=== PATIENT | female | born 1960 | race Caucasian/White ===

== ENCOUNTER → 2017-01-07 | Outpatient (CLI) | payer OTHER ==
--- NOTE | 2017-01-07 11:10 | DIAGNOSTIC IMAGING REPORT ---
ULTRASOUND OF THE CAROTID ARTERIES CLINICAL HISTORY: Visual changes. COMPARISON STUDY: No priors. TECHNIQUE: Real-time, grayscale, and color Doppler sonography of the carotid arteries is performed. Images are reviewed in the transverse and longitudinal planes. FINDINGS: Blood pressure in the right arm measures 142/69 and blood pressure in the left arm measures 140/78. The carotid arteries are patent bilaterally and demonstrate antegrade flow. There is minimal atherosclerotic plaque identified. Normal doppler arterial waveforms are seen throughout. Velocity measurements are listed below. Common carotid peak systolic velocity (cm/sec): RIGHT: 78 LEFT: 108 ICA proximal peak systolic velocity (cm/sec): RIGHT: 66 LEFT: 67 ICA mid peak systolic velocity (cm/sec): RIGHT: 79 LEFT: 78 ICA distal peak systolic velocity (cm/sec): RIGHT: 116 LEFT: 79 ICA/CC peak systolic ratio: RIGHT: 1.5 LEFT: 0.8 Antegrade flow was shown in the vertebral arteries. The external carotid arteries are patent. IMPRESSION: 1. There is no sonographic evidence of hemodynamically significant stenosis in the right or left carotid arterial system. 2. Antegrade flow is shown in the vertebral arteries. Electronically signed by: Demarcus Allen M.D. 01/07/2017 11:09 AM Dictated Date/Time: 01/07/2017 11:08 AM
== END | disposition home or self-care (01) ==
LOC: C.ULTR 09:02
PROVIDERS: ATTEND Family Medicine
DX: H53.9 Unspecified visual disturbance (principal)